=== PATIENT | female | born 1980 | race Caucasian/White ===

== ENCOUNTER 2016-04-24 14:52 | Emergency (ER) | payer OTHER | END 2016-04-24 16:28 | disposition home or self-care (01) | LOC: FER 14:52 | DX: S46.912A Strain of unspecified muscle, fascia and tendon at shoulder and upper arm level, left arm, initial encounter (principal); R53.1 Weakness; F17.210 Nicotine dependence, cigarettes, uncomplicated; W10.9XXA Fall (on) (from) unspecified stairs and steps, initial encounter | CPT/HCPCS: 73030; J1100; J1885 ==

== ENCOUNTER 2016-07-20 13:06 | Emergency (ER) | payer OTHER ==
[2016-07-20 14:34] LABS: BILIRUBIN NEGATIVE (NEGATIVE); BLOOD 2+ Ery/uL (NEGATIVE); CLARITY CLEAR (CLEAR); COLOR YELLOW (YELLOW); GLUCOSE (U) NORMAL (NORMAL); KETONE (U) NEGATIVE (NEGATIVE); LEUKOCYTES NEGATIVE Leu/uL (NEGATIVE); NITRITE NEGATIVE (NEGATIVE); PROTEIN NEGATIVE (NEGATIVE); UROBILINOGEN 0.2 mg/dL (0.2-1.0); pH 6.5 (5.0-9.0)
[2016-07-20 14:59] LABS: BACTERIA 2+
[2016-07-20 15:22] LABS: BASOPHIL 0.2 % (0-2); HCT 41.2 % (37.0-47.0); HGB 14.3 g/dl (12.5-16.0); LYMPHOCYTE 18.5 % (15-48); MCH 32.3 pg (25.0-31.0); MCHC 34.7 g/dL (32.0-36.0); MPV 9.7 fL (6.0-9.5); NEUTROPHIL 73.3 % (41-80); PLT 319 K/uL (150-400); RBC 4.43 M/uL (4.20-5.40); RDW 12.5 % (11.5-14.0); WBC 11.9 K/uL (4.0-10.5)
[2016-07-20 15:36] LABS: CREATININE 0.6 mg/dL (0.5-1.0); POTASSIUM 4.4 mmol/L (3.5-5.1)
== END 2016-07-20 16:22 | disposition home or self-care (01) ==
LOC: FER 13:06
PROVIDERS: Emergency Medicine; Nurse Practitioner Family
DX: M54.41 Lumbago with sciatica, right side (principal); R31.9 Hematuria, unspecified; F17.210 Nicotine dependence, cigarettes, uncomplicated
CPT/HCPCS: 36415; 80048; 81001; 85025; 87088; 96372; J1100; J1170; J1885; J2405